=== PATIENT | female | born 1990 | race Caucasian/White ===

== ENCOUNTER 2024-09-06 16:20 | Emergency (ER) | payer BC, OTHER ==
[~2024-09-06] VITALS: Ht 165.1 cm; Wt 54.4 kg
[~2024-09-06 16:20] MED LIST: LAMI1TAB7 PO; NO HOME MEDICATIONS; PAXI10TA2 PO; SERO1TAB3 PO
[2024-09-06] MEDS ORDERED: PRED20TA (16:34)
[2024-09-06] MEDS ORDERED: ALBU8.5H (16:34)
[2024-09-06] MEDS: PANTOPRAZOLE 40MG TAB (PROTONIX) PO ONE (18:00)
[2024-09-06] MEDS: SUCRALFATE SUSP 1GM/10ML UD PO ONE (18:10)
[2024-09-06] MEDS: ONDANSETRON 4MG ORAL DISINTEGRATING TAB PO ONE (18:10)
[2024-09-06] MEDS: LIDOCAINE VISCOUS 2% SOLN 15ML UDC MT ONE (18:40)
[2024-09-06] MEDS: MAALOX 30 ML SUSP *UDC PO ONE (18:50)
[2024-09-06] MEDS: diphenhydrAMINE 12.5MG/5ML ELIXIR UDC PO ONE (18:51)
[2024-09-06] MEDS ORDERED: CARA1TAB6 PO (19:01)
[2024-09-06] MEDS ORDERED: PROTPAK PO (19:01)
[2024-09-06] MEDS ORDERED: ONDA-282 PO (19:02)
[2024-09-06 19:04] VITALS: BP 131/75; TEMP 98.8; O2SAT 97
== END 2024-09-06 19:09 | disposition home or self-care (01) ==
LOC: M ED 16:20
DX: J09.X2 Influenza due to identified novel influenza A virus with other respiratory manifestations (principal); K21.9 Gastro-esophageal reflux disease without esophagitis; F17.200 Nicotine dependence, unspecified, uncomplicated; F12.10 Cannabis abuse, uncomplicated; Z91.048 Other nonmedicinal substance allergy status; Z88.2 Allergy status to sulfonamides; Z88.1 Allergy status to other antibiotic agents; Z91.040 Latex allergy status; Z79.52 Long term (current) use of systemic steroids; Z79.83 Long term (current) use of bisphosphonates; Z79.899 Other long term (current) drug therapy